=== PATIENT | male | born 1960 | race Caucasian/White ===

== ENCOUNTER 2021-01-22 10:09 | Emergency (ER) | payer BC ==
[~2021-01-22 10:09] MED LIST: AMARYL1 MG PO; BACTROBAN OINT22 GM EXT; KEFLEX CAP 500500 MG PO; OMNICEF 300 MG300 MG PO; ZANTAC150 MG PO; ZYLOPRIM 300 M300 MG PO
[2021-01-22 11:07] LABS: HEMOGLOBIN 15.5 gm/dl (14.0-17.5); RED BLOOD COUNT 4.86 M/UL (4.20-5.50); WHITE BLOOD COUNT 9.1 K/UL (4.5-11.0)
[2021-01-22 11:26] LABS: BUN/CREATININE RATIO 10 (0-10)
[2021-01-22] MEDS ORDERED: NAPROSYN EC 37375 MG PO (16:15)
[2021-01-22] MEDS ORDERED: CYCLOBENZAPRINE5 MG PO (16:15)
== END 2021-01-22 17:04 | disposition home or self-care (01) ==
LOC: ER1 10:09
PROVIDERS: Physician Assistant
DX: M54.12 Radiculopathy, cervical region (principal); I25.10 Atherosclerotic heart disease of native coronary artery without angina pectoris; E78.5 Hyperlipidemia, unspecified; I11.9 Hypertensive heart disease without heart failure; E11.9 Type 2 diabetes mellitus without complications; Z95.1 Presence of aortocoronary bypass graft; Z87.442 Personal history of urinary calculi; Z85.828 Personal history of other malignant neoplasm of skin
CPT/HCPCS: 71045; 72125; 73030; 80053; 82550; 82553; 83874; 84484; 85025; 93005; 99284

== ENCOUNTER → 2021-02-11 | Outpatient (CLI) | payer BC ==
[~2021-02-11] MED LIST changes: +CYCLOBENZAPRINE5 MG PO; +NAPROSYN EC 37375 MG PO
== END ==
LOC: MRI 13:25
DX: M54.12 Radiculopathy, cervical region (principal); R93.7 Abnormal findings on diagnostic imaging of other parts of musculoskeletal system
CPT/HCPCS: 72156; A9577